=== PATIENT | male | born 1945 | race Caucasian/White ===

== ENCOUNTER 2023-12-30 03:21 | Inpatient (IN) | payer MEDICARE, BC, SELFPAY ==
[2023-12-29 20:04] VITALS: BP 160/73; BMI 26.8
[2023-12-29 20:05] VITALS: BP 160/73
--- NOTE | 2023-12-29 20:35 | ED.GENMED ---
History of Present Illness
General
Chief Complaint: Fall
Time Seen by Provider: 12/29/23 20:22
Travel History
Have you had any contact with someone who has COVID-19?: No
Do you have any symptoms of coronavirus? Fever > 100 degrees, chills, cough, shortness of breath, sore throat, loss of taste or smell, muscle aches, or headache?: No
History of Present Illness
History of Present Illness:
78-year-old male presents to the emergency department for evaluation of right hip pain after mechanical fall. He states he lost his balance and fell backward onto his right buttock. He was able to get up and lay in bed to take a nap shortly after
this occurred however after waking up from a nap noted severe pain that prompted him to come to the hospital. He was unable to put weight on the right side. He denies any head strike or loss of consciousness. He is not on any anticoagulants. He
also notes that he has had a cough and nasal congestion for the past 3 to 4 days, denies chest pain or dyspnea, denies fevers
Review of Systems
Review of Systems
Allergies reviewed?: Yes
All Other Systems: ROS reviewed and negative except as documented in HPI and ROS
Phy Exam
Physical Exam
Physical Exam:
GEN: Well appearing, NAD, WDWN
Eyes: PERRLA, EOMs intact, no scleral icterus
HENT: NCAT, oral mucosa moist
Lungs: CTAB, no wheezes, rales, rhonchi, normal chest wall excursion
Cardiac: RRR, no M/R/G, no peripheral edema. Radial pulses 2+ bilat
Abdomen: S, NT, ND, NABS, no masses or hepatosplenomegaly
Neuro: AO x 3
MSK: No gross deformity or ecchymosis. No focal tenderness to the right hip or gluteal region. Right hip range of motion is normal however flexion elicits significant discomfort. No shortening or external rotation
Skin: No rashes, petechiae. Normal color, no pallor or jaundice.
Psych: Calm, cooperative, proper hygiene
Course
Orders/Labs/Results
Orders:
Orders
12/29/23 20:34
CR Chest - 2 Views Urgent
Comment:
Reason For Exam: cough
CR Hip - RT w/wo Pel 2-3 Vw* Urgent
Comment:
Reason For Exam: fall, R hip pain
Include a pelvis x-ray?: Yes
12/29/23 22:44
CT Pelvis W/o Iv Contrast Urgent
Comment:
Reason For Exam: fall, possible pubic rami/acetabular fx on XR
12/29/23 22:48
Acetaminophen [Tylenol] 650 mg PO NOW STA
12/29/23 23:59
Complete Blood Count/With Diff Urgent
12/30/23 01:15
Comprehensive Metabolic Panel Urgent
Vital Signs
Initial and Last Documented VS:
Initial Vital Signs
Temp Pulse Resp BP Pulse Ox
98.3 F 73 18 160/73 94
12/29/23 20:04 12/29/23 20:04 12/29/23 20:04 12/29/23 20:04 12/29/23 20:04
Last Documented Vital Signs
Temp Pulse Resp BP Pulse Ox
98.3 F 73 18 148/73 94
12/29/23 20:04 12/29/23 20:04 12/29/23 20:04 12/29/23 21:00 12/30/23 01:25
MDM/Problems Addressed
MDM/Problems Addressed:
Initial x-rays independently interpreted by me were concerning for an acetabular/pelvic bone fracture and thus follow-up CT scan was obtained which confirmed the diagnosis. I discussed with orthopedics, patient will be admitted to the hospitalist
service as he will require nonweightbearing status and likely will need rehab admission
*Critical Care Note
Total Time (30-74mins, 75-104mins- exclusive of procedures): Not Applicable
ED Attending Note
-
Portions of this chart may have been created with voice recognition software.� Occasional wrong word or��sound alike� substitutions may have occurred due to the inherent limitations of voice recognition software.
Discharge Plan
Departure
Patient Disposition: Admit
Date of Disposition: 12/30/23
Time of Disposition: 01:07
Presentation/result/management discussed w/ accepting MD/DO: Hospitalist
Discharge Problem:
Closed fracture of right ilium
Prescriptions:
No Action
atorvastatin 20 MG tablet
20 mg PO DAILY
multivitamin with folic acid [Tab-A-Bhargav] 1 TABLET tablet
1 tab PO DAILY
Referrals:
Mick Lr MD [Family Provider] -
Interventions
Interventions:
*Risk Screen - Suicide Last Done: 12/29/23 20:07
*General Assessment Last Done: 12/29/23 20:07
*Neglect/Abuse Screening Last Done: 12/29/23 20:07
*ED COVID-19 Vaccine History Last Done: 12/29/23 20:07
ED-Musculoskeletal Assessment Last Done: 12/29/23 20:10
ED- Neurological Assessment Last Done: 12/29/23 20:10
ED-Skin Assessment Last Done: 12/29/23 20:10
Discharge Date and Time
Print Language: SPANISH
[2023-12-29 21:00] VITALS: BP 148/73
[2023-12-29] MEDS: TYLENOL 650 MG PO (22:55)
[2023-12-30] VITALS (9 sets, daily range): BP systolic 137–165; BP diastolic 65–78; PULSE 63; O2SAT 94; BMI 25.8
[2023-12-30 01:34] LABS: % Basophils 0.2 % (0-2); % Immature Granulocytes 0.2 % (0-0.5); % Monocytes 9.4 % (1.7-9.3); % Neutrophils 70.2 % (42.2-75.2); Absolute Eosinophils 0.1 10^3/uL (0-0.7); Absolute Lymphocytes 1.6 10^3/uL (1.2-3.4); Absolute Monocytes 0.8 10^3/uL (0.1-0.6); Absolute Neutrophils 5.8 10^3/uL (1.4-6.5); Hematocrit 36.6 % (39.0-52.0); Hemoglobin 12.7 g/dL (13.0-18.0); Mean Corp Hgb Conc. 34.7 g/dL (33.0-37.0); Mean Corpuscular Volume 86.3 fL (80.0-94.0); Mean Platelet Volume 9.7 fL (7.4-10.4); Nucleated Red Blood Cells % 0 % (-); Platelet Count 154 10^3/uL (130-400); Red Blood Cell Count 4.24 10^6/uL (4.70-6.10); Red Cell Dist. Width 12.9 % (11.5-14.5); White Blood Cell Count 8.3 10^3/uL (4.8-10.8)
[2023-12-30 01:56] LABS: ALT (SGPT) 17 U/L (0-50); AST (SGOT) 28 U/L (17-59); Albumin 4.1 g/dl (3.5-5.0); Alkaline Phosphatase 61 U/L (38-126); Blood Urea Nitrogen 22 mg/dl (9-20); Calcium 9.1 mg/dl (8.4-10.2); Carbon Dioxide 24 mmol/L (22-30); Chloride 107 mmol/L (98-107); Estimated Creatinine Clearance 78 ml/min; Glucose 111 mg/dl (70-99); Potassium 4.1 mmol/L (3.5-5.1); Sodium 140 mmol/L (135-145); Total Bilirubin 1.1 mg/dl (0.2-1.3); eGFR > 60.00
--- NOTE | 2023-12-30 02:35 | HPS.HSE ---
Family Physician
-
Family Physician: Mick Lr
Chief Complaint
-
right hip pain after fall
History of Present Illness
Mr. Dung Del Toro is a 78 yo man with hx bladder cancer s/p TURBT, hx right HALEY presents to the ER post fall with resulting right hip pain.
Patient was woken up from sleep for me (3 AM) and appears mildly confused, unable to give good history. Per ER note: 'He states he lost his balance and fell backward onto his right buttock. He was able to get up and lay in bed to take a nap
shortly after this occurred however after waking up from a nap noted severe pain that prompted him to come to the hospital. He was unable to put weight on the right side. He denies any head strike or loss of consciousness. He is not on any
anticoagulants. He also notes that he has had a cough and nasal congestion for the past 3 to 4 days, denies chest pain or dyspnea, denies fevers'
Currently patient denying pain. Admits to having cough and no fevers. Confused about a lawsuit.
Medical History
Past Medical History
Past Medical History: Reports Other (bladder cancer s/p TURBT, hx ri)
Past Surgical History: Reports Other (see above )
Social History
Unable to obtain full social history at this time due to: Dementia
Family History
Family History: Not pertinent
Allergies / Home Medications
Allergies reflects when Allergies were last updated in [facility].
Home Medications with original date entered in [facility]
Allergy/Medication List:
Allergies
Allergy/AdvReac Type Severity Reaction Status Date / Time
clindamycin Allergy severe Verified 12/04/22 09:12
diarrhea
latex Allergy Rash Verified 12/04/22 09:43
Opioids - Morphine Analogues Allergy Hallucinati Verified 12/04/22 09:43
ons
Penicillins Allergy EYE Verified 12/04/22 09:12
SWELLING,
ITCHING
shrimp Allergy Anaphylaxis Verified 12/04/22 09:12
Home Medications
atorvastatin 20 mg tablet 20 mg PO DAILY 11/26/21
multivitamin with folic acid 400 mcg tablet (Tab-A-Bhargav) 1 tab PO DAILY 11/26/21
*med rec not complete
Review of Systems
-
Unable to obtain full review of systems at this time due to: Dementia
History Source: Patient
A 12 point ROS was completed and negative except as noted: Yes
Physical Exam
Vital Signs
Vital Signs
Temp Pulse Resp BP Pulse Ox
98.3 F 65 16 137/65 92
12/29/23 20:04 12/30/23 02:00 12/30/23 02:00 12/30/23 02:00 12/30/23 02:00
Physical Exam
General: Conversant (but confused )
HEENT: PERRLA
Respiratory: Clear; No Wheezes
Cardiac: S1/S2 and Regular Rhythm
GI: Soft and Non Tender
Musculoskeletal: No Edema
Skin: Warm and Dry; No Rash
Neuro: AO x 3
Psych: Calm and Confused
Laboratory Results
-
12/30/23 01:23
12/30/23 01:24
Laboratory Results
Total Bilirubin 1.1 mg/dl (0.2-1.3) 12/30/23 01:24
AST 28 U/L (17-59) 12/30/23 01:24
ALT 17 U/L (0-50) 12/30/23 01:24
Alkaline Phosphatase 61 U/L (38-126) 12/30/23 01:24
Data Reviewed
-
Diagnostic Radiology: Report Reviewed by me
Lab Data: Labs Reviewed by me
Impression/Plan
-
Mr. Dung Del Toro is a 78 yo man with hx bladder cancer s/p TURBT, hx right HALEY presents to the ER post fall with resulting right hip pain.
Triage VS: T 98.3, P 73, RR 18, BP 160/73, SpO2 94%
LABS: WBC 8.3, Hg 12.7, PLT 154, Na 140, K+ 4.1, BUN 22, Cr 0.8, Glucose 111, liver enzymes WNL
Pelvis CT: mildly displaced periprosthetic fracture right ilium with extension to the acetabulum; additional fractures left inferior pubic ramus
MAR: Tylenol
Mildly Displaced Periprosthetic fracture right Ilium
Additional fractures left inferior pubic ramus
-ER spoke to Dr. Raymundo recommending [facility], formal consult tomorrow
-admit to med/surg with ortho consulting
-bedrest for now; will need PT/OT orders once I confirm plan with ortho (will text in morning)
-patient's pain was controlled with Tylenol in ER, will continue RTC
-listed hallucinations with opiates; hold off giving for now
-will need eventual SNF
Apparent Dementia
-patient likely has some sundowning now, will be oriented but then very confused and focused on a lawsuit
-continue to redirect, try to avoid sedating medications
awaiting med rec
DVT PPx lovenox subQ
FULL CODE - this will need to be confirmed by team in morning; patient confused on my interview
[2023-12-30 03:44] LABS: COVID-19 Antigen Negative (Negative)
--- NOTE | 2023-12-30 07:11 | W.PN.UPDATE ---
Addendum entered and electronically signed by Viktor Fernández PA-C 12/30/23 08:53:
CT scan pelvis reviewed by Dr. Lucas. It does appear as though he has got minimally displaced acetabulum fracture but it is outside weightbearing surface. Patient may partial weightbearing right lower extremity. Follow-up with his hip surgeon
at [facility] for x-ray in 2 weeks to check position.
Original Note:
Update Note
Progress Note Update
Full orthopedic consult dictated:
Dx: Right hip periprosthetic fracture (mildly displaced fracture acetabulum)
Plan: Patient underwent right total hip arthroplasty by [facility] within the last few years but he does not remember who his surgeon was. He also underwent right knee replacement and ORIF right ankle at [place]. Unfortunately he had a fall last
evening and x-rays/CT scan pelvis show mildly displaced fracture which looks as though it is along the inferior portion of the acetabulum and extends medially. I do not recommend any surgical intervention but will be nonweightbearing until it
heals. PT/OT may be consulted. Follow-up with his surgeon 2 weeks post injury for repeat x-ray for position check.
[2023-12-30 07:36] LABS: % Basophils 0.4 % (0-2); % Eosinophils 1.4 % (0-6); % Immature Granulocytes 0.1 % (0-0.5); % Lymphocytes 15.7 % (20.5-51.1); % Monocytes 10.3 % (1.7-9.3); % Neutrophils 72.1 % (42.2-75.2); Absolute Eosinophils 0.1 10^3/uL (0-0.7); Absolute Lymphocytes 1.1 10^3/uL (1.2-3.4); Absolute Monocytes 0.7 10^3/uL (0.1-0.6); Absolute Neutrophils 5.1 10^3/uL (1.4-6.5); Hematocrit 38.3 % (39.0-52.0); Hemoglobin 12.9 g/dL (13.0-18.0); Mean Corp Hgb Conc. 33.7 g/dL (33.0-37.0); Mean Corpuscular Hgb 29.5 pg (27.0-31.0); Mean Corpuscular Volume 87.6 fL (80.0-94.0); Mean Platelet Volume 9.9 fL (7.4-10.4); Nucleated Red Blood Cells % 0 % (-); Platelet Count 158 10^3/uL (130-400); Red Blood Cell Count 4.37 10^6/uL (4.70-6.10); Red Cell Dist. Width 12.8 % (11.5-14.5); White Blood Cell Count 7.1 10^3/uL (4.8-10.8)
[2023-12-30 07:56] LABS: Blood Urea Nitrogen 21 mg/dl (9-20); Calcium 9.1 mg/dl (8.4-10.2); Carbon Dioxide 27 mmol/L (22-30); Chloride 105 mmol/L (98-107); Estimated Creatinine Clearance 78 ml/min; Glucose 97 mg/dl (70-99); Magnesium 2.1 mg/dl (1.6-2.3); Potassium 4.2 mmol/L (3.5-5.1); Sodium 141 mmol/L (135-145); eGFR > 60.00
[2023-12-30] MEDS: TYLENOL 1000 MG PO ×3 (08:03→21:29)
--- NOTE | 2023-12-30 12:04 | W.PN.HOSP.TC ---
Today's Communication/Plan
-
Await PT/OT
Assessment / Plan
Assessment / Plan
Gen-AAOx3, NAD
HEENT-NC, AT, anicteric, clear oral mm
Neck-supple
CV-reg, no M, +S1/S2
Lungs-clear B/L
Abd-soft, NT, ND
Ext-no edema
Musculoskeletal-no cyanosis, clubbing
Skin-warm and dry
Neuro-grossly non-focal
Psych-calm, cooperative
Acute traumatic right pelvic fractures -due to fall and underlying osteoporosis. CT scan confirms nondisplaced fractures of the right acetabulum and ilium, no dislocation. Right total hip replacement in anatomic alignment. Additional nondisplaced
fracture of the right inferior pubic ramus.
Await PT/OT input. Orthopedics recommends partial weightbearing right lower extremity. Outpatient follow-up in 2 weeks to repeat x-ray with his orthopedic surgeon at [facility].
Family interested in home PT, want to avoid SNF.
Osteoporosis -new diagnosis. Recommend close outpatient follow-up with PCP to start treatment. Discussed with patient.
History of bladder cancer
History of right total hip arthroplasty
Delirium -reportedly was confused last night. Mental status back to baseline currently.
Full code
Family updated at the bedside.
Anticipated Discharge: Within 24 hours
Subjective/Interval History
-
Date of Service: December 30, 2023
Patient seen/examined, no pain currently. No complaints. Family at bedside.
Objective Data
-
Labs:
Laboratory Results
12/30/23 12/30/23 12/30/23
:23 :24 07:10
WBC 8.3 7.1
Hgb 12.7 L 12.9 L
Hct 36.6 L 38.3 L
Plt Count 154 158
Sodium 140 141
Potassium 4.1 4.2
Chloride 107 105
Carbon Dioxide 24 27
BUN 22 H 21 H
Creatinine 0.8 0.8
Glucose 111 H 97
Calcium 9.1 9.1
Total Bilirubin 1.1
AST 28
ALT 17
Alkaline Phosphatase 61
Vital Signs:
Vital Signs
Temp Pulse Resp BP Pulse Ox
98.4 F 66 18 165/70 94
12/30/23 07:12 12/30/23 07:12 12/30/23 07:12 12/30/23 07:12 12/30/23 08:00
I&O
12/29/23 12/30/23 12/31/23
06:59 06:59 06:59
Output Total 200 / 200
Balance -200 / -200
Review of Systems
-
History Source: Patient
All other systems: Reviewed and negative
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
[2023-12-30] MEDS: LOVENOX 40 MG SC (17:10)
[2023-12-31 07:05] VITALS: BP 162/85
[2023-12-31] MEDS: TYLENOL 1000 MG PO ×3 (08:14→21:07)
--- NOTE | 2023-12-31 10:58 | W.PN.HOSP.TC ---
Addendum entered and electronically signed by Agusto Will DO 12/31/23 14:37:
I spoke with case management, home care is available and set up already.
However, family wants to set up / back tender paper machine care and soonest would be tomorrow. I spoke with on the phone.
Hopefully we can discharge home tomorrow.
Original Note:
Today's Communication/Plan
-
Discharge planning
Assessment / Plan
Assessment / Plan
Gen-AAOx3, NAD
HEENT-NC, AT, anicteric, clear oral mm
Neck-supple
CV-reg, no M, +S1/S2
Lungs-clear B/L
Abd-soft, NT, ND
Ext-no edema
Musculoskeletal-no cyanosis, clubbing
Skin-warm and dry
Neuro-grossly non-focal
Psych-calm, cooperative
Acute traumatic right pelvic fractures -due to fall and underlying osteoporosis. CT scan confirms nondisplaced fractures of the right acetabulum and ilium, no dislocation. Right total hip replacement in anatomic alignment. Additional nondisplaced
fracture of the right inferior pubic ramus.
Await PT/OT input. Orthopedics recommends partial weightbearing right lower extremity. Outpatient follow-up in 2 weeks to repeat x-ray with his orthopedic surgeon at [facility].
Family interested in home PT, want to avoid SNF.
Osteoporosis -new diagnosis. Recommend close outpatient follow-up with PCP to start treatment. Discussed with patient.
History of bladder cancer
History of right total hip arthroplasty
Delirium -reportedly was confused last night. Mental status back to baseline currently.
Full code
Dispo -PT and OT are recommending SNF but patient and family prefer to go home with VNA and home PT. Medically stable for discharge. Await social work assistance to arrange for home care.
Family updated at the bedside.
Anticipated Discharge: Today
Subjective/Interval History
-
Date of Service: December 31, 2023
Patient seen and examined. No complaints.
Objective Data
-
Vital Signs:
Vital Signs
Temp Pulse Resp BP Pulse Ox
98.2 F 66 17 162/85 96
12/31/23 07:05 12/31/23 07:05 12/31/23 07:05 12/31/23 07:05 12/31/23 07:05
I&O
12/30/23 12/31/23 01/01/24
06:59 06:59 06:59
Intake Total 720 / 720
Output Total 200 / 200 700 / 700
Balance -200 / -200 20 / 20
Review of Systems
-
History Source: Patient
All other systems: Reviewed and negative
[2023-12-31 12:43] VITALS: BP 153/78; PULSE 63
[2023-12-31 12:51] VITALS: BP 153/78; PULSE 63
[2023-12-31 15:00] VITALS: BP 146/71
--- NOTE | 2023-12-31 17:19 | CM ---
Addendum entered by Diego Humphries 12/31/23 18:53:
IMM completed.
Original Note:
Patient will discharge to home with HH VN and PT/OT services. [facility] has accepted patient. Plan SOC on 01/03/24. intends on having care companions for 2 twelve hour shifts to assist with patient care and mobility. The care
clarifying plant operator services will begin on 01/01/24 when patient is discharged. Family has requested ambulance transport due to patient's limited weight bearing status. They are aware of probable fee.
[2023-12-31] MEDS: LOVENOX 40 MG SC (17:28)
[2023-12-31 23:34] VITALS: BP 165/79
--- NOTE | 2024-01-01 07:26 | PTCARENOTE ---
pts Radhika was notified of pts d/c, 9am.
--- NOTE | 2024-01-01 07:37 | W.PN.HOSP.TC ---
Today's Communication/Plan
-
Update home medication list
Discharge
Assessment / Plan
Assessment / Plan
Gen-AAOx3, NAD
HEENT-NC, AT, anicteric, clear oral mm
Neck-supple
CV-reg, no M, +S1/S2
Lungs-clear B/L
Abd-soft, NT, ND
Ext-no edema
Musculoskeletal-no cyanosis, clubbing
Skin-warm and dry
Neuro-grossly non-focal
Psych-calm, cooperative
Acute traumatic right pelvic fractures -due to fall and underlying osteoporosis. CT scan confirms nondisplaced fractures of the right acetabulum and ilium, no dislocation. Right total hip replacement in anatomic alignment. Additional nondisplaced
fracture of the right inferior pubic ramus.
Await PT/OT input. Orthopedics recommends partial weightbearing right lower extremity. Outpatient follow-up in 2 weeks to repeat x-ray with his orthopedic surgeon at [facility].
Family interested in home PT, want to avoid SNF.
Osteoporosis -new diagnosis. Recommend close outpatient follow-up with PCP to start treatment. Discussed with patient.
History of bladder cancer
History of right total hip arthroplasty
Delirium -reportedly was confused last night. Mental status back to baseline currently.
Full code
Dispo -PT and OT are recommending SNF but patient and family prefer to go home with VNA and home PT. Medically stable for discharge. Await social work assistance to arrange for home care.
Please update home medication list, discussed with nurse today.
Anticipated Discharge: Today
Subjective/Interval History
-
Date of Service: January 01, 2024
Patient seen and examined. No new complaints.
Objective Data
-
Vital Signs:
Vital Signs
Temp Pulse Resp BP Pulse Ox
98.1 F 64 16 165/79 95
12/31/23 23:34 12/31/23 23:34 12/31/23 23:34 12/31/23 23:34 12/31/23 23:34
I&O
12/31/23 01/01/24 01/02/24
06:59 06:59 06:59
Intake Total 720 / 720
Output Total 700 / 700 300 / 300
Balance 20 / 20 -300 / -300
Review of Systems
-
History Source: Patient
All other systems: Reviewed and negative
[2024-01-01 07:43] VITALS: BP 158/82
[2024-01-01] MEDS: TYLENOL 1000 MG PO (08:10)
--- NOTE | 2024-01-01 08:33 | W.DS.TRANS ---
DC Summary - Validation Analyst
-
Discharge Instructions:
Discharge Diagnosis/Procedures Right traumatic pelvic fracture, osteoporosis,
delirium
Diet Regular
Activity With assistance,As tolerated
Driving Restrictions No driving
Bathing Restrictions None
Other Services VN
Instructions:
Stand-Alone Forms:
Changes to Home Medications: No
Discharge Medications:
DC Medications w/original date entered in [employer]
atorvastatin 20 mg tablet 20 mg PO DAILY High Cholesterol 11/26/21
multivitamin with folic acid 400 mcg tablet (Tab-A-Bhargav) 1 tab PO DAILY 11/26/21
polyethylene glycol 3350 17 gram oral powder packet (HealthyLax) 17 g PO DAILYPRN PRN constipation #0 ea 01/01/24
sennosides 8.6 mg-docusate sodium 50 mg tablet (Stool Softener-Stimulant Laxative) 1 tab PO BIDPRN PRN constipation #0 tabs 01/01/24
solifenacin 10 mg PO DAILY 01/01/24
Home Medication Changes
Pending Results: No
--- NOTE | 2024-01-01 09:45 | PTCARENOTE ---
Patient discharged to home via Acute Care transport on stretcher. Daughter present at time and reviewed all discharge medications and instructions. Daughter left with patient's personal commode and rolling walker and all personal belongings.
--- NOTE | 2024-01-01 10:09 | CM ---
CM following re: discharge planning.
Reviewed pt's chart, met with pt this morning.
Discharge order noted. Pt is aware, expressed his agreement with discharge and he stated his spouse will transport home. IMM reviewed, placed on chart, pt has a copy.
Pt is aware he will have [facility] .
Please fax discharge instructions to [facility] at [phone]
D/C plan: home with [facility] and family support. Spouse to transport.
== END 2024-01-01 09:32 | disposition home health service (06) | DRG 543 ==
LOC: 2 SOUTH 03:21
PROVIDERS: Physician Assistant; ADMITTING PHYSICIAN Student in an Organized Health Care Education/Training Program; ATTENDING PHYSICIAN Hospitalist; CONSULT PHYSICIAN Specialist; EMERGENCY PHYSICIAN Emergency Medicine; FAMILY PHYSICIAN Family Medicine
DX: M80.0AXA Age-related osteoporosis with current pathological fracture, other site, initial encounter for fracture (principal); F05 Delirium due to known physiological condition; M97.01XA Periprosthetic fracture around internal prosthetic right hip joint, initial encounter; M80.051A Age-related osteoporosis with current pathological fracture, right femur, initial encounter for fracture; R09.81 Nasal congestion; F03.90 Unspecified dementia, unspecified severity, without behavioral disturbance, psychotic disturbance, mood disturbance, and anxiety; W01.0XXA Fall on same level from slipping, tripping and stumbling without subsequent striking against object, initial encounter; Y93.01 Activity, walking, marching and hiking; Y92.003 Bedroom of unspecified non-institutional (private) residence as the place of occurrence of the external cause; Z96.641 Presence of right artificial hip joint; Z85.51 Personal history of malignant neoplasm of bladder; Z88.1 Allergy status to other antibiotic agents; Z91.040 Latex allergy status; Z88.5 Allergy status to narcotic agent; Z88.0 Allergy status to penicillin; Z91.013 Allergy to seafood
CPT/HCPCS: 71046; 72192; 73502; 80048; 80053; 83735; 85025; 87502; 87811; 97116; 97162; 97167; 97530; 97535; 99285

== ENCOUNTER → 2024-11-29 10:28 | Outpatient (REF) | payer MEDICARE, BC, SELFPAY ==
[2024-11-29 11:20] LABS: Hematocrit 41.3 % (39.0-52.0); Hemoglobin 13.6 g/dL (13.0-18.0); Mean Corp Hgb Conc. 32.9 g/dL (33.0-37.0); Mean Corpuscular Hgb 29.2 pg (27.0-31.0); Mean Corpuscular Volume 88.8 fL (80.0-94.0); Platelet Count 177 10^3/uL (130-400); Red Blood Cell Count 4.65 10^6/uL (4.70-6.10); Red Cell Dist. Width 13.3 % (11.5-14.5)
[2024-11-29 13:02] LABS: Blood Urea Nitrogen 19 mg/dl (9-20); Calcium 9.3 mg/dl (8.4-10.2); Carbon Dioxide 28 mmol/L (22-30); Chloride 108 mmol/L (98-107); Glucose 85 mg/dl (70-99); Potassium 4.7 mmol/L (3.5-5.1); Sodium 146 mmol/L (135-145); eGFR > 60.00
== END ==
LOC: SDSPAT 10:28
PROVIDERS: ATTENDING PHYSICIAN Specialist; FAMILY PHYSICIAN Family Medicine
DX: Z01.818 Encounter for other preprocedural examination (principal)
CPT/HCPCS: 36415; 80048; 85027; 93005

== ENCOUNTER 2024-12-06 06:14 | Day surgery (SDC) | payer MEDICARE, OTHER, SELFPAY ==
[2024-11-29 14:01] VITALS: BMI 27.2
[2024-12-06] VITALS (12 sets, daily range): BP systolic 152–190; BP diastolic 73–94; BMI 27.2
[2024-12-06] MEDS: NORMOSOL-R/PLASMALYTE-A 1000 IV (09:39)
[2024-12-06] MEDS: CYSVIEW KIT 100 MG INTRAVES (09:50)
[2024-12-06] MEDS: SYRINGE NON-PUMP 50 MG IRRIG ×2 (13:19→13:20)
[2024-12-06] MEDS: SYRINGE NON-PUMP 50 ML IRRIG ×2 (13:19→13:20)
== END 2024-12-06 16:25 | disposition home or self-care (01) ==
LOC: SDS 06:14
PROVIDERS: ATTENDING PHYSICIAN Specialist; FAMILY PHYSICIAN Family Medicine
DX: N30.80 Other cystitis without hematuria (principal); N32.89 Other specified disorders of bladder; Z85.51 Personal history of malignant neoplasm of bladder
CPT/HCPCS: 52234; 51720; C9738; 88307; A9589

== ENCOUNTER 2025-08-03 06:19 | Day surgery (SDC) | payer MEDICARE, BC, SELFPAY ==
[2025-08-01 11:42] LABS: Hematocrit 43.2 % (39.0-52.0); Hemoglobin 14.3 g/dL (13.0-18.0); Mean Corp Hgb Conc. 33.1 g/dL (33.0-37.0); Mean Corpuscular Volume 88.3 fL (80.0-94.0); Nucleated Red Blood Cells % 0 % (-); Platelet Count 189 10^3/uL (130-400); Red Cell Dist. Width 13.3 % (11.5-14.5)
[2025-08-01 12:13] LABS: Blood Urea Nitrogen 20 mg/dl (9-20); Calcium 9.4 mg/dl (8.4-10.2); Carbon Dioxide 28 mmol/L (22-30); Chloride 106 mmol/L (98-107); Glucose 87 mg/dl (70-99); Potassium 4.5 mmol/L (3.5-5.1); Sodium 140 mmol/L (135-145); eGFR > 60.00
[2025-08-03] VITALS (12 sets, daily range): BP systolic 131–203; BP diastolic 66–112; BMI 26.2
[2025-08-03] MEDS: CYSVIEW KIT 100 MG INTRAVES (08:37)
--- NOTE | 2025-08-03 08:39 | PTCARENOTE ---
Patients Cystview instilled at 0830 without complications. Will monitor patient.
[2025-08-03] MEDS: NORMOSOL-R/PLASMALYTE-A 1000 IV (08:56)
[2025-08-03] MEDS: SYRINGE NON-PUMP 50 MG IRRIG ×2 (10:08→10:09)
[2025-08-03] MEDS: SYRINGE NON-PUMP 50 ML IRRIG ×2 (10:08→10:09)
[2025-08-03] MEDS: SUBLIMAZE 50 MCG IV (10:15)
[2025-08-03] MEDS: VALIUM INJECTION 5 MG IV (10:30)
[2025-08-03] MEDS: TYLENOL 1000 MG PO (10:44)
== END 2025-08-03 12:26 | disposition home or self-care (01) ==
LOC: SDS 06:19
PROVIDERS: ATTENDING PHYSICIAN Specialist; FAMILY PHYSICIAN Family Medicine
DX: C67.9 Malignant neoplasm of bladder, unspecified (principal)
CPT/HCPCS: 52224; 51720; C9738; 36415; 80048; 85025; 88307; 93005; A9589; J9201